=== PATIENT | male | born 2000 | race Caucasian/White ===

== ENCOUNTER 2025-01-08 13:44 | Outpatient (CLI) | payer OTHER, SELFPAY ==
--- NOTE | 2025-01-08 14:00 | CRLHL7_ITS ---
For Patients: As a result of the Century Cures Act, medical imaging exams and procedure reports are released immediately into your electronic medical record. You may view this report before your referring provider. If you have questions, please contact your health care provider. EXAM: MRI OF THE LEFT KNEE, WITHOUT CONTRAST CLINICAL INDICATION: Persistent knee pain following injury 1 month prior. COMPARISON PLAIN FILMS: 12/27/2024. COMPARISON CROSS-SECTIONAL IMAGING STUDIES: None available at time of interpretation. TECHNICAL: Axial, sagittal and coronal T1, PD, PD FS and T2 FS images. Knee coil. FINDINGS: MEDIAL COMPARTMENT: Medial Meniscus: Normal size and morphology without tear. Articular Cartilage: Articular surfaces appear smooth without focal articular cartilage defect or subchondral marrow changes. - LATERAL COMPARTMENT: Lateral Meniscus: Normal size and morphology without tear. Articular Cartilage: Articular surfaces appear smooth without focal articular cartilage defect or subchondral marrow changes. - PATELLOFEMORAL COMPARTMENT: Articular Cartilage: Articular surfaces appear smooth without focal articular cartilage defect or subchondral marrow changes. - CRUCIATE LIGAMENTS: Anterior Cruciate Ligament: Normal. Posterior Cruciate Ligament: Normal. - MEDIAL COLLATERAL LIGAMENT AND POSTEROMEDIAL CORNER COMPLEX: Medial Collateral Ligament: Normal. Medial Head of the Gastrocnemius and Semimembranosus Tendons: Normal. - LATERAL COLLATERAL LIGAMENT COMPLEX AND POSTEROLATERAL CORNER COMPLEX: Fibular Collateral Ligament: Normal. Distal Biceps Femoris Tendon Complex: Normal. Iliotibial Band: Normal. Popliteus Tendon: Normal. Posterolateral Corner Capsule: Normal. - EXTENSOR MECHANISM: Distal Quadriceps Tendon: Normal. Patellar Tendon: Normal. Medial Patellar Retinaculum and Medial Patellofemoral Ligament: Normal. Lateral Patellar Retinaculum: Normal. Normal patellar alignment. No patella damian. Normal trochlear depth. Normal lateral trochlear inclination. - JOINT SPACE: Effusion: Small knee joint effusion with mild synovitis. No popliteal cyst. Joint Bodies: None seen. - OSSEOUS STRUCTURES: There is a small contusion of the inferior aspect of the medial patellar facet and a moderate-size contusion in the lateral nonweightbearing aspect of the lateral femoral condyle. Findings are consistent with sequela from transient patellar dislocation. No fractures are evident. - PERIARTICULAR SOFT TISSUES: Periarticular Cysts or Ganglia: None. Bursae: No prepatellar, superficial infrapatellar, deep infrapatellar, pes anserinus or semimembranosus/MCL bursitis. Musculature: No muscle atrophy or muscle edema. Subcutaneous and Soft Tissues: No subcutaneous or soft tissue mass, edema or fluid collection. Neurovascular Structures: Normal. IMPRESSION: 1. Contusions in the medial patella and lateral femoral condyle in a pattern consistent with sequela from transient patellar dislocation. 2. Normal patellar alignment and morphology. 3. Small knee joint effusion and mild synovitis. Dictated by Mike Presley MD @ 01/09/2025 5:10:50 PM (Electronically Signed)
== END 2025-01-08 13:45 | disposition home or self-care (01) ==
PROVIDERS: PCP Family Medicine; Visit Provider Family Medicine
DX: M25.562 Pain in left knee (principal); M25.462 Effusion, left knee
CPT/HCPCS: 73721